=== PATIENT | male | born 1945 | race Caucasian/White ===

== ENCOUNTER 2020-06-13 21:40 | Emergency (ER) | payer OTHER ==
[~2020-06-13] VITALS: Ht 185.4 cm; Wt 108.0 kg
[2020-06-13 21:46] VITALS: BP_SYST 170
[2020-06-13] MEDS ORDERED: NITROGLYCERIN 1 INCH (GM) OINT. TD ONE (22:15)
[2020-06-13 22:17] LABS: BASOPHILS # (AUTO) 0.1 K/uL (0.0-0.2); EOSINOPHILS # (AUTO) 0.5 K/uL (0.0-0.4); EOSINOPHILS % (AUTO) 4.3 % (0.0-4.0); HEMATOCRIT 28.8 % (36-54); HEMOGLOBIN 9.4 g/dL (14.0-18.0); LYMPHOCYTES % (AUTO) 8.3 % (20.5-51.5); MEAN CORPUSCULAR HEMOGLOBIN 30 pg (27-31); MEAN CORPUSCULAR HGB CONC 33 % (32-36); MEAN CORPUSCULAR VOLUME 91 fL (79.0-98.0); MONOCYTES # (AUTO) 1.4 K/uL (0.0-1.0); MONOCYTES % (AUTO) 12.3 % (1.7-9.3); NEUTROPHILS # (AUTO) 8.7 K/uL (1.8-7.7); NEUTROPHILS % (AUTO) 74.1 % (40.0-70.0); PLATELET COUNT (AUTO) 324 K/uL (130-430); RED BLOOD CELL COUNT(AUTO) 3.16 MIL/uL (4.2-6.2); RED CELL DISTRIBUTION WIDTH 14.5 % (9.0-15.0); WHITE BLOOD COUNT (AUTO) 11.7 K/uL (4.8-10.8)
[2020-06-13 22:32] LABS: ANION GAP 13 (5-15); CHLORIDE 100 mmol/L (98-107); CREATININE 3.13 mg/dL (0.55-1.30); GLUCOSE 314 mg/dL (70-99); POTASSIUM 3.7 mmol/L (3.5-5.1); SODIUM SERUM 136 mmol/L (136-145); UREA NITROGEN, BLOOD 96 mg/dL (8-21)
[2020-06-13 22:38] LABS: ALANINE AMINOTRANSFERASE 26 U/L (12-78); ALBUMIN 3.2 g/dL (3.4-4.8); ASPARTATE AMINOTRANSFERASE 25 U/L (10-37); TOTAL BILIRUBIN 0.4 mg/dL (0.0-1.0)
[2020-06-13 22:39] LABS: PROTHROMBIN TIME 10.3 SECS (9.5-12.5)
[2020-06-14] MEDS ORDERED: NACL 0.9% 1,000 ML IV ONE (00:27)
== END 2020-06-14 02:15 | disposition home or self-care (01) ==
LOC: SED 21:40
DX: I49.9 Cardiac arrhythmia, unspecified (principal); D64.9 Anemia, unspecified; R07.89 Other chest pain; R79.89 Other specified abnormal findings of blood chemistry; E11.29 Type 2 diabetes mellitus with other diabetic kidney complication; N28.9 Disorder of kidney and ureter, unspecified; Z86.73 Personal history of transient ischemic attack (TIA), and cerebral infarction without residual deficits
CPT/HCPCS: 36415; 71045; 80053; 82550-TC; 83880; 84484; 85025; 85610-TC; 85730-TC; 93005; 99285